=== PATIENT | female | born 1995 | race Caucasian/White ===

== ENCOUNTER 2016-11-08 15:52 | Emergency (ER) | payer OTHER ==
[~2016-11-08 15:52] MED LIST: ACETAMINOPHEN325 MG PO; AMOXICILLIN500 MG PO; GNP PRENATAL V PO
== END 2016-11-08 16:25 | disposition home or self-care (01) ==
LOC: ER 15:52
DX: L73.2 Hidradenitis suppurativa (principal); F17.210 Nicotine dependence, cigarettes, uncomplicated